=== PATIENT | male | born 1965 | race Caucasian/White ===

== ENCOUNTER 2018-10-20 19:13 | Emergency (ER) | payer BC ==
[~2018-10-20] VITALS: Wt 90.7 kg
[~2018-10-20 19:13] MED LIST: MEDROL DOSEPAK4 MG PO; ROBAXIN500 M1 PO
[2018-10-20] MEDS ORDERED: NAPROSYN500 MG PO (19:30)
== END 2018-10-20 19:40 | disposition home or self-care (01) ==
LOC: ED 19:13
DX: M62.838 Other muscle spasm (principal); M54.2 Cervicalgia; X58.XXXA Exposure to other specified factors, initial encounter; Y93.89 Activity, other specified; Y92.89 Other specified places as the place of occurrence of the external cause; Y99.0 Civilian activity done for income or pay